=== PATIENT | female | born 1965 | race Caucasian/White ===

== ENCOUNTER 2020-12-15 14:56 | Emergency (ER) | payer OTHER ==
[~2020-12-15] VITALS: Ht 149.9 cm; Wt 57.3 kg
[2020-12-15] MEDS ORDERED: FUROSEMIDE40 MG PO (15:38)
[2020-12-15] MEDS ORDERED: LISINOPRIL10 MG PO (15:38)
[2020-12-15] MEDS ORDERED: NOVOLOG100 UNIT/1 SC (15:38)
[2020-12-15] MEDS ORDERED: ATORVASTATIN CA20 MG PO (15:38)
[2020-12-15] MEDS ORDERED: NEURONTIN300 MG PO (15:38)
[2020-12-15] MEDS ORDERED: METOPROLOL SUCC50 MG PO (15:38)
[2020-12-15] MEDS ORDERED: INSULIN REGULAR, HUMAN 100 UNIT/1 ML 3ML VIAL IV ONE (17:15)
[2020-12-15] MEDS ORDERED: INSULIN REGULAR, HUMAN 100 UNIT/1 ML 3ML VIAL ONE (17:15)
== END 2020-12-15 17:32 | disposition home or self-care (01) ==
LOC: FSED 15:10
DX: R60.9 Edema, unspecified (principal); E11.65 Type 2 diabetes mellitus with hyperglycemia; N19 Unspecified kidney failure
CPT/HCPCS: 80048; 81003; 83880; 85025; 85379; 93970 ×2; 96374; 99283; J1817